=== PATIENT | male | born 1980 | race Caucasian/White ===

== ENCOUNTER 2023-08-19 07:46 | Emergency (ER) | payer SELFPAY ==
[~2023-08-19] VITALS: Ht 180.3 cm; Wt 83.9 kg
[2023-08-19 07:54] VITALS: BP 177/118
[2023-08-19 08:00] VITALS: BP 161/110
[2023-08-19 08:15] VITALS: BP 144/104
[2023-08-19 08:30] VITALS: BP 157/107
[2023-08-19 08:45] VITALS: BP 136/102
[2023-08-19] MEDS ORDERED: TRAMADOL HYDROC50 M1 PO (08:47)
[2023-08-19] MEDS ORDERED: CLINDAMYCIN300 M1 PO (08:47)
[2023-08-19] MEDS ORDERED: MOTRIN800 MG PO (08:47)
[2023-08-19 08:54] VITALS: BP 144/102
== END 2023-08-19 08:58 | disposition home or self-care (01) | DRG 159 ==
LOC: ED 07:46
DX: K02.9 Dental caries, unspecified (principal); S02.5XXA Fracture of tooth (traumatic), initial encounter for closed fracture; X58.XXXA Exposure to other specified factors, initial encounter; F17.210 Nicotine dependence, cigarettes, uncomplicated